=== PATIENT | female | born 1995 | race Caucasian/White ===

== ENCOUNTER 2016-06-02 16:19 | Outpatient (CLI) | payer OTHER ==
[~2016-06-02] VITALS: Ht 157.5 cm; Wt 99.1 kg
[~2016-06-02 16:19] MED LIST: ACET325T33 PO; CEPH-443 PO; PREN-39 PO; URSO300C21
[2016-06-02 16:58] VITALS: BP 105/61; PULSE 112; RESP 18; Ht 157.5 cm; Wt 99.1 kg
--- NOTE | 2016-06-02 17:24 | RADRPT ---
PROCEDURE: US OB biophysical profile. CLINICAL INDICATION: decreased movements, abdominal pain TECHNIQUE: Multiple sonographic images of the pelvis were obtained. The images were reviewed on a PACS workstation. COMPARISON: No prior studies are available for comparison. FINDINGS: There is a single viable intrauterine gestation. Cardiac activity is present with 153 beats per min [place]. There is a breech presentation. The placenta is anterior. There is no evidence of placental abruption. There is a normal amount of amniotic fluid with an GHAZALA = 16.6 cm. Biophysical profile: movement 2/2 tone 2/2. breathing 2/2 GHAZALA 2/2 Total 01/04 RPTAT: AA . IMPRESSION: Normal biophysical profile. . .Derek Deleon MD, Date Time Electronically viewed and signed by .Derek Deleon MD, MD on 06/02/2016 17:23 .S/
[2016-06-02 17:53] LABS: ALBUMIN 3.9 g/dl (3.3-4.9)
[2016-06-02 18:06] LABS: BILIRUBIN,INDIRECT 0.2 mg/dl (0-1.1); BILIRUBIN,TOTAL 0.2 mg/dl (0.2-1.3)
[2016-06-02 18:07] LABS: TOTAL PROTEIN 7.9 g/dl (6.1-8.1)
--- NOTE | 2016-06-02 19:20 | TRIAGE ---
OB Triage Datetime Report Generated by CPN: 06/02/2016 19:20 Datetime: 06/02/2016 19:00 Stage of : OB Triage Maternal Assessment Level of Consciousness: Fully Conscious Labor Evaluation Frequency: IRRITIBILITY NOTED Monitor Mode: External Quality: Mild Resting Tone [place]: Relaxed Heart Rate FHR Baseline Rate: 140 Monitor Mode: External US Variability: Moderate 6-25 bpm Accelerations: 15X15 Decelerations: None Pain Assessment Pain Scale: 0 Pain Presence: None/Denies Pain Type: N/A Pain Goal: 3 Vaginal Exam Membrane Status: Intact Vaginal Bleeding: None Datetime: 06/02/2016 18:00 Stage of : OB Triage Maternal Assessment Level of Consciousness: Fully Conscious Labor Evaluation Frequency: IRRITIBILITY NOTED Monitor Mode: External Quality: Mild Resting Tone [place]: Relaxed Heart Rate FHR Baseline Rate: 140 Monitor Mode: External US Variability: Moderate 6-25 bpm Accelerations: 15X15 Decelerations: None Pain Assessment Pain Scale: 0 Pain Presence: None/Denies Pain Type: N/A Pain Goal: 3 Vaginal Exam Membrane Status: Intact Vaginal Bleeding: None Datetime: 06/02/2016 17:30 Comments: PT BACK FROM U/S AND REPLACED ON EFM. Datetime: 06/02/2016 16:54 Assessment Type: Triage Maternal Assessment Level of Consciousness: Fully Conscious DTR's/Clonus: DTRs 2+; No Clonus Headache: Denies Blurred Vision: No Respiratory Effort: Unlabored; Regular Rhythm; Equal Expansion Breath Sounds, Left: Clear and Equal Breath Sounds, Right: Clear and Equal Nausea/Vomiting: Denies RUQ Epigastric Pain: Denies Lower Extremities Edema: None Degree: None Upper Extremities Edema: None Degree: None Facial Edema: None Fall Risk Assessment History of Falling: (0) No Secondary Diagnosis: (0) No Ambulatory Aid: (0) Bedrest/Nurse Assist IV Therapy: (0) No Gait: (0) Normal/Bedrest/Immobile Mental Status: (0) Oriented to Own Ability Fall Score: 0 Fall Risk Score Definition: No Risk: No action required Datetime: 06/02/2016 16:52 Time of Arrival: 06/02/2016 16:16 EGA: 34.0 Arrived By: Ambulatory Arrived From: Home Chief Complaint: PT HERE FOR NST/BPP FOR CHOLESTASIS Movement: Present Contractions: Denies/Absent Rupture of Membranes: Denies Vaginal Bleeding: None Vaginal Discharge: Denies Recent Sexual Intercouse: Denies Abdominal Trauma: Not Applicable Patient Complaints: None Time Provider Notified: 06/02/2016 16:16 Provider Notified: [email or web address] Initial Plan: BPP/NST/BILE ACIDS/LFT'S
[2016-06-07 13:15] LABS: CHENODEOXYCHOLIC ACID 2.6 umol/L (< OR = 3.1); CHOLIC ACID 1.7 umol/L (< OR = 1.8); DEOXYCHOLIC ACID 1.2 umol/L (< OR = 2.4); TOTAL BILE ACIDS 5.5 umol/L (< OR = 6.8)
== END 2016-06-02 19:27 | disposition home or self-care (01) ==
LOC: OBT 16:19 → L-D 16:20 → OBT 19:27
PROVIDERS: ATTEND Obstetrics & Gynecology
DX: O36.8130 Decreased fetal movements, third trimester, not applicable or unspecified (principal); O26.613 Liver and biliary tract disorders in pregnancy, third trimester; K83.1 Obstruction of bile duct; Z3A.34 34 weeks gestation of pregnancy
CPT/HCPCS: 76818; 80076; 83789; Z7500; G0463

== ENCOUNTER 2016-06-05 17:39 | Outpatient (CLI) | payer OTHER ==
--- NOTE | 2016-06-02 20:43 | QN ---
Documentation Comment 20 years old with IUP at 34 weeks with care with Dr. Louis, was sent from [facility] for NST/ BPP due to cholestasis of . Sheryl has been currently taking Ursodiol 300 mg PO TID that significantly improved her itching. Reports history of cholestasis in her prior as well. She denies any LOF or vaginal bleeding or contractions. Denies any decreased movement. GA: A&O, NAD Abdomen: Soft, non tender, Fundal height appropriate and consistent with GA Extremities: No calf tenderness, no click, no edema NST: Cat 1 BPP: 01/04 LFT normaL. LFT on 05/04/2016 prior to Ursodiol 116 and 180 and now normalized after started on Ursodiol Her prior Bile acids on 05/04/2016 . 5 ( nl). no fractionated bile acid done Bile acid at this encounter collected and sent. Results will be available after 5 days Assessment: IUP at 34 weeks Whole body itching without rash, concerning for possible cholestasis of . Symptoms completely resolved with Ursodiol NST/ BPP reassuring IN home Discussed with the patient about her condition. Strict PTL precaution and FKC discussed with the patient. Continue Biweekly NST/ BPP Continue Ursodiol 500 mg TID. SABINE POSADAS MD Jun 02, 2016 20:43
[~2016-06-05] VITALS: Ht 157.5 cm; Wt 101.0 kg
[~2016-06-05 17:39] MED LIST changes: -ACET325T33 PO; -CEPH-443 PO
[2016-06-05 17:51] VITALS: Ht 157.5 cm; Wt 101.0 kg
[2016-06-05 17:52] VITALS: BP 109/60; PULSE 103; RESP 20
--- NOTE | 2016-06-05 18:29 | RADRPT ---
PROCEDURE: OB ultrasound for biophysical profile CLINICAL INDICATION: Pain. Biophysical profile. . TECHNIQUE: Multiple sonographic images of the pelvis were obtained. Transabdominal view of the gr avid uterus are available for review. The images were reviewed on a PACS workstation. COMPARISON: 06/02/2016 FINDINGS: breathing movement = 2/2 tone = 2/2 motion = 2/2 GHAZALA = 2/2 GHAZALA = 13.0 cm Single intrauterine gestation is identified in cephalic position. heart rate is 152 bpm. Plac enta is anterior without evidence for abruption or previa. IMPRESSION: 1. Single live intrauterine gestation. 2. Biophysical profile = 8/8. 3. GHAZALA = 13.0 cm. RPTAT: HDWR .Nader Herbert MD, Date Time Electronically viewed and signed by .Nader Herbert MD, on 06/05/2016 18:29 .R/
--- NOTE | 2016-06-05 21:24 | HP ---
Date/Time of Note Date/Time of Note DATE: 06/05/16 TIME: 21:18 OB - History Hx of Present Free Text/Dictation OB Triage Pt is a 20yo at 34+3 presenting for NST/GHAZALA in the setting of presumed cholestasis. Pt is taking Ursodiol 300mg TID with good effect. She reports a little itching on the hands this morning, but none further- sxs have improved quite a bit since starting meds. Pt reports normal FM, denies LOF, VB or UCs. PROCEDURE: OB ultrasound for biophysical profile CLINICAL INDICATION: Pain. Biophysical profile. . TECHNIQUE: Multiple sonographic images of the pelvis were obtained. Transabdominal view of the gravid uterus are available for review. The images were reviewed on a PACS workstation. COMPARISON: 06/02/2016 FINDINGS: breathing movement = 2/2 tone = 2/2 motion = 2/2 GHAZALA = 2/2 GHAZALA = 13.0 cm Single intrauterine gestation is identified in cephalic position. heart rate is 152 bpm. Placenta is anterior without evidence for abruption or previa. IMPRESSION: 1. Single live intrauterine gestation. 2. Biophysical profile = 8/8. 3. GHAZALA = 13.0 cm. Past Family/Social History * Past Medical, Surgical, Family and Obstetric Histories reviewed from chart. OB Admission Exam Vital Signs Vital Signs Vital Signs Date Time Temp Pulse Resp B/P Pulse Ox O2 Delivery O2 Flow Rate FiO2 06/05/16 17:52 97.9 103 20 109/60 96 Room Air Physical Exam Heart Rate: 130's Accelerations: Accelerations Present Decelerations: No Decelerations Varibility: Moderate Contractions on Admission: None OB Assessment/Plan Other Assessment: Presumed Cholestasis, awaiting Total Bile Acids Other plan: Reassuring FWB with reactive NST and normal BPP Continue Ursodiol as prescribed Pt appropriate for d/c home Scheduled for return biweekly NST, next 06/07/15 Strict FKC precautions, PTL and PPROM precautions reviewed Questions answered to patient's satisfaction RUDDY GRUBBS MD Jun 05, 2016 21:24
== END 2016-06-05 19:11 | disposition home or self-care (01) ==
LOC: OBT 17:39 → L-D 17:39 → OBT 19:11
PROVIDERS: ATTEND Obstetrics & Gynecology
DX: O26.613 Liver and biliary tract disorders in pregnancy, third trimester (principal); K83.1 Obstruction of bile duct; Z3A.34 34 weeks gestation of pregnancy
CPT/HCPCS: 76818; Z7500; G0463

== ENCOUNTER 2016-06-07 18:13 | Outpatient (CLI) | payer OTHER ==
[~2016-06-07] VITALS: Ht 157.5 cm; Wt 101.2 kg
[2016-06-07 18:32] VITALS: Ht 157.5 cm; Wt 101.2 kg
--- NOTE | 2016-06-07 19:36 | RADRPT ---
PROCEDURE: OB ultrasound for biophysical profile CLINICAL INDICATION: Biophysical profile. . TECHNIQUE: Multiple sonographic images of the pelvis were obtained. Transabdominal view of the gr avid uterus are available for review. The images were reviewed on a PACS workstation. COMPARISON: OB ultrasound 06/05/2016 FINDINGS: Single intrauterine gestation. Presentation: cephalic. Placenta: anterior breathing movement = 2/2 tone = 2/2 motion = 2/2 GHAZALA = 2/2 GHAZALA = 13.2 cm heart rate: 148 beats per minute IMPRESSION: Single intrauterine gestation. Biophysical profile 01/04 RPTAT: AADD .Bharat Diamond MD, MD Date Time Electronically viewed and signed by .Bharat Diamond MD, on 06/07/2016 19:36 .B/
== END 2016-06-07 20:32 | disposition home or self-care (01) ==
LOC: OBT 18:13 → L-D 18:13 → OBT 20:32
PROVIDERS: ATTEND Obstetrics & Gynecology
DX: O26.619 Liver and biliary tract disorders in pregnancy, unspecified trimester (principal); K83.1 Obstruction of bile duct; Z3A.00 Weeks of gestation of pregnancy not specified
CPT/HCPCS: 76818; Z7500; G0463

== ENCOUNTER 2016-06-10 08:17 | Outpatient (CLI) | payer OTHER ==
--- NOTE | 2016-06-08 04:23 | HP ---
Date/Time of Note Date/Time of Note DATE: 06/08/16 TIME: 04:15 OB - History Hx of Present Free Text/Dictation 20Year-old with SIUP at 34 5/7 presents with a chief complaint of ucs. She has been receiving her care with Dr. Garrett. She states good movement. She denies nausea, vomiting, shortness of breath, chest pain, and abdominal pain between contractions, headache, visual changes, vaginal bleeding or LOF. Past Family/Social History * Past Medical, Surgical, Family and Obstetric Histories reviewed from chart. OB Admission Exam Physical Exam HEENT: WNL Heart: Rhythm Normal Lungs: Clear Abdomen: WNL Extremities: Normal Reflexes: Normal Cervical Dilatation: 1cm Effacement: 75% Station: -3 Membranes: Intact Heart Rate: 140's Accelerations: Accelerations Present Decelerations: No Decelerations Varibility: Moderate Contractions on Admission: 6-10 Minutes Apart Intensity: Mild OB Assessment/Plan Other plan: Physical Exam: 20Year-old with SIUP at 34 5/7 with cholestasis and ucs. She received IVF and one dose terbutaline (per Dr. Garrett orders). Currently has no further ucs. - FHR: No sign of metabolic acidosis- Category I - Contractions: None. - Contractions: Occasional - Reactive NST - BPP: 10/10 - Symptoms and sign of labor, preeclampsia, kick count discussed with patient, she voiced understanding. All of her questions answered. - Patient was discharged home in stable condition with the appropriate discharge instructions provided. I would like patient to have close follow-up with her primary OB physician or outpatient clinic in 1-2 days or return to the ER for worsening symptoms or any other urgent concerns. Copies To: CC: FLOR GARRETT MD, SEDI Jun 08, 2016 04:23
[~2016-06-10] VITALS: Ht 157.5 cm; Wt 100.6 kg
[2016-06-10 08:30] VITALS: Ht 157.5 cm; Wt 100.6 kg
[2016-06-10 08:31] VITALS: BP 116/59; PULSE 106; RESP 18
--- NOTE | 2016-06-10 09:12 | RADRPT ---
PROCEDURE: OB ultrasound for biophysical profile CLINICAL INDICATION: Cholestasis TECHNIQUE: Multiple sonographic images of the pelvis were obtained. Transabdominal view of the gr avid uterus are available for review. The images were reviewed on a PACS workstation. COMPARISON: None FINDINGS: breathing movement = 2/2 tone = 2/2 motion = 2/2 GHAZALA = 2/2 GHAZALA = 10.8 cm Single live intrauterine with cardiac activity. heart rate equals 150 beats p er minute. Presentation is breech. The placenta is anterior. IMPRESSION: 1. Single viable intrauterine gestation. 2. Biophysical profile = 8/8. 3. GHAZALA = 10.8 cm. RPTAT: KK .Bharathi Mcgregor MD, Date Time Electronically viewed and signed by .Bharathi Mcgregor MD, MD on 06/10/2016 09:12 .B/
--- NOTE | 2016-06-10 12:16 | CONS ---
DATE OF ADMISSION: 06/10/2016 DATE OF CONSULTATION: CONSULTATION HISTORY OF PRESENT ILLNESS: This patient is a 21-year-old 3, para 2, , about 35 weeks and 1 day. Her due date is 07/14/2016, and she developed cholestasis of during this . Is here for further evaluation. PAST MEDICAL HISTORY: In reviewing her past medical history during her 2 past deliveries, she developed this condition of cholestasis and one delivery at 36 weeks, the other one at 37 weeks. Her complaints are mostly the intense itching which is improving with Actigall, which she is taking 300 mg t.i.d. No other complaint other complaints. No nausea, no vomiting. No pain, no contractions, no bleeding. PHYSICAL EXAMINATION: GENERAL: She is a well-developed, well-nourished lady, , near term. EARS, NOSE, AND THROAT: Appear to be normal. NECK: Normal. No neck vein distention, no thyromegaly. LYMPHATIC: no lymph nodes anywhere in the body. CHEST: Clear to auscultation and percussion. HEART: Normal sinus rhythm, no murmur. ABDOMEN: It measures about 34 cm. Baby appears to be in vertex presentation and we do not have many contractions, and heart rate variability is good. EXTREMITIES: Normal. On both of her hands, she does have erythema and evidence of cholestasis of to some degree on the palm and on the soles of her feet. No organomegaly anywhere in the body. PELVIC: Exam was not done; however, the biophysical profile was performed, and her score is 8/8. The baby was in breech presentation and vertex. Her amniotic fluid index is 10.8 cm. With these findings, the patient is advised to go home and return in 4 days for further monitoring. She is told to continue taking her Actigall 300 mg t.i.d. If any low movement, any sign of labor, vaginal bleeding or any other problems, she can immediately come back to the hospital. Dictated By: JENS POWERS/JAY Conf#: [id number] DID#: [id number] MTDAlva
== END 2016-06-10 10:31 | disposition home or self-care (01) ==
LOC: OBT 08:17 → L-D 08:18 → OBT 10:31
PROVIDERS: ATTEND Obstetrics & Gynecology
DX: O26.613 Liver and biliary tract disorders in pregnancy, third trimester (principal); K83.1 Obstruction of bile duct; Z3A.35 35 weeks gestation of pregnancy
CPT/HCPCS: 76818; Z7500; G0463

== ENCOUNTER 2016-06-14 14:22 | Outpatient (CLI) | payer OTHER ==
[~2016-06-14] VITALS: Ht 157.5 cm; Wt 100.5 kg
[2016-06-14 14:34] VITALS: Ht 157.5 cm; Wt 100.5 kg
[2016-06-14 14:35] VITALS: BP 110/70; PULSE 94; RESP 18
--- NOTE | 2016-06-14 14:57 | RADRPT ---
PROCEDURE: US OB biophysical profile. CLINICAL INDICATION: decreased movements, cholestasis TECHNIQUE: Multiple sonographic images of the pelvis were obtained. The images were reviewed on a PACS workstation. COMPARISON: 06/10 FINDINGS: There is a single viable intrauterine gestation. Cardiac activity is present with 140 beats per min jena. There is a vertex presentation. The placenta is anterior. There is no evidence of placental abruption. There is a normal amount of amniotic fluid with an GHAZALA = 13.8 cm. Biophysical profile: movement 2/2 tone 2/2. breathing 2/2 GHAZALA 2/2 Total 01/04 RPTAT: AA . IMPRESSION: Normal biophysical profile. . .Derek Deleon MD, MD Date Time Electronically viewed and signed by .Derek Deleon MD, MD on 06/14/2016 14:57 .S/
--- NOTE | 2016-06-16 11:06 | PN ---
DATE: The patient is a 21-year-old at 35 weeks. Patient here for no complaints but ____ _ ___ reactive. The patient will be discharged home. Follow up in ____ clinic . All precaut ions given. The patient is stable upon discharge. Dictated By: PHILLIP LEDBETTER MD /NTS Conf#: [id number] DID#: [id number]
== END 2016-06-14 15:40 | disposition home or self-care (01) ==
LOC: OBT 14:22 → L-D 14:23 → OBT 15:40
PROVIDERS: ATTEND Obstetrics & Gynecology
DX: O26.613 Liver and biliary tract disorders in pregnancy, third trimester (principal); K83.1 Obstruction of bile duct; O36.8130 Decreased fetal movements, third trimester, not applicable or unspecified; Z3A.35 35 weeks gestation of pregnancy
CPT/HCPCS: 76818; Z7500; G0463

== ENCOUNTER 2016-06-15 15:46 | Inpatient (IN) | payer OTHER ==
[~2016-06-15] VITALS: Ht 157.5 cm; Wt 101.0 kg
[2016-06-15 15:55] VITALS: Ht 157.5 cm; Wt 101.0 kg
[2016-06-15 15:56] VITALS: BP 118/72; PULSE 93
--- NOTE | 2016-06-15 17:28 | QN ---
Documentation Comment OB triage: 35+wks GA With cholestasis of and CTXs No VB +FM No lof Occasion CTX CX 1 cm/l /p NST reassuring --->BPP and PIH panel to be done if 01/04 she can be discharge with precautions --->RT Hospital in 2 days for another NST BPSTEPHEN JONES M.D. Jun 15, 2016 17:28
--- NOTE | 2016-06-15 17:46 | RADRPT ---
PROCEDURE: US biophysical profile. CLINICAL INDICATION: Decreased motion. Incompetent cervix. TECHNIQUE: Multiple sonographic images of the uterus were obtained. Transvaginal sonograp hy of the cervix was also performed. The images were reviewed on a PACS workstation. COMPARISON: 06/14/2016. FINDINGS: There is a single live intrauterine gestation. heart rate is 148 beats per minute. The position is cephalic. The placenta is anterior grade II with no abruption or previa. The GHAZALA is 15.4 cm. (Normal = 5-20 cm.) Transvaginal cervical length is 1.7 cm. Breathing Movement: 2 Gross Body Movement: 2 Tone: 2 Qualitative Amniotic Fluid Volume: 2 TOTAL: 8 IMPRESSION: 1. The biophysical score is 8/8. 2. Cervical length is 1.7 cm. RPTAT: QQ .Ramón Young MD, Date Time Electronically viewed and signed by .Ramón Young MD, on 06/15/2016 17:46 .R/
[2016-06-15 18:03] LABS: BASOPHILS % 0.3 % (0.0-2.0); EOSINOPHILS % 0.2 % (0.0-7.0); HEMOGLOBIN 12.1 g/dl (12.0-16.0); LYMPHOCYTES # 1.4 10^3/ul (0.8-2.9); LYMPHOCYTES % 18.9 % (15.0-51.0); MEAN CORPUSCULAR HEMOGLOBIN 29.4 pg (29.0-33.0); MEAN CORPUSCULAR HGB CONC 33.7 g/dl (32.0-37.0); MEAN CORPUSCULAR VOLUME 87.2 fl (82.0-101.0); MEAN PLATELET VOLUME 9.3 fl (7.4-10.4); MONOCYTE # 0.3 10^3/ul (0.3-0.9); MONOCYTES % 4.6 % (0.0-11.0); NEUTROPHIL # 5.4 10^3/ul (1.6-7.5); PLATELET COUNT 249 10^3/UL (140-440); RED BLOOD COUNT 4.13 10^6/ul (4.20-5.40); RED CELL DISTRIBUTION WIDTH 13.7 % (11.5-14.5); UNCORRECTED WBC 7.2 10^3/ul (4.8-10.8); WHITE BLOOD COUNT 7.2 10^3/ul (4.8-10.8)
[2016-06-15 18:05] LABS: CONDITION 1
[2016-06-15 18:11] LABS: ADD UMIC YES; URINE BILIRUBIN (Dip) 1+ (NEGATIVE); URINE BLOOD (Dip) NEGATIVE (NEGATIVE); URINE COLOR YELLOW (YELLOW); URINE GLUCOSE (Dip) NEGATIVE (NEGATIVE); URINE KETONES (Dip) NEGATIVE (NEGATIVE); URINE LEUKOCYTE ESTERASE (Dip) 1+ (NEGATIVE); URINE NITRITE (Dip) NEGATIVE (NEGATIVE); URINE TOTAL PROTEIN (Dip) NEGATIVE (NEGATIVE); URINE UROBILINOGEN (Dip) 1.0 E.U./dL (0.1-1.0)
[2016-06-15 18:12] LABS: ALBUMIN 3.6 g/dl (3.3-4.9)
[2016-06-15 18:13] LABS: POTASSIUM 4.2 mmol/L (3.5-5.1)
[2016-06-15 18:14] LABS: PARTIAL THROMBOPLASTIN TIME 26.6 Sec (25.0-35.0); PROTIME 12.1 Sec (12.2-14.2); PT RATIO 0.9
[2016-06-15 18:15] LABS: ALBUMIN/GLOBULIN RATIO 0.97; BILIRUBIN,INDIRECT 0.2 mg/dl (0-1.1); BILIRUBIN,TOTAL 0.2 mg/dl (0.2-1.3); CREATININE 0.6 mg/dl (0.44-1.00); TOTAL PROTEIN 7.3 g/dl (6.1-8.1); URIC ACID 5.4 mg/dl (3.1-7.9)
[2016-06-15 18:16] LABS: CALCIUM 10.7 mg/dl (8.4-10.2)
[2016-06-15 18:17] LABS: ICTOTEST NEGATIVE (NEGATIVE)
[2016-06-15 18:19] LABS: BACTERIA,URINE FEW; SQUAMOUS EPITHELIAL CELL,UR MODERATE; URINE RBCS 0-2 /HPF (0)
[2016-06-15 19:27] LABS: FIBRIN SPLIT PRODUCT <10 ug/ml (<10)
[2016-06-15] MEDS: URSODIOL 300 MG CAP PO SCH (21:55)
[2016-06-16 06:36] LABS: BASOPHILS % 0.6 % (0.0-2.0); EOSINOPHILS % 0.7 % (0.0-7.0); HEMATOCRIT 32.2 % (37.0-47.0); HEMOGLOBIN 11.3 g/dl (12.0-16.0); LYMPHOCYTES # 1.7 10^3/ul (0.8-2.9); LYMPHOCYTES % 30.5 % (15.0-51.0); MEAN CORPUSCULAR HEMOGLOBIN 30.3 pg (29.0-33.0); MEAN CORPUSCULAR VOLUME 86.5 fl (82.0-101.0); MEAN PLATELET VOLUME 9.8 fl (7.4-10.4); MONOCYTE # 0.4 10^3/ul (0.3-0.9); MONOCYTES % 7.4 % (0.0-11.0); NEUTROPHIL # 3.5 10^3/ul (1.6-7.5); NEUTROPHILS % 60.8 % (39.0-77.0); PLATELET COUNT 241 10^3/UL (140-440); RED BLOOD COUNT 3.72 10^6/ul (4.20-5.40); RED CELL DISTRIBUTION WIDTH 13.9 % (11.5-14.5); UNCORRECTED WBC 5.7 10^3/ul (4.8-10.8); WHITE BLOOD COUNT 5.7 10^3/ul (4.8-10.8)
[2016-06-16 06:45] LABS: CONDITION 1
[2016-06-16 08:16] LABS: ALBUMIN 3.2 g/dl (3.3-4.9); POTASSIUM 4.1 mmol/L (3.5-5.1)
[2016-06-16 08:18] LABS: CREATININE 0.57 mg/dl (0.44-1.00)
[2016-06-16 08:19] LABS: ALBUMIN/GLOBULIN RATIO 0.91; BILIRUBIN,INDIRECT 0.1 mg/dl (0-1.1); BILIRUBIN,TOTAL 0.1 mg/dl (0.2-1.3); TOTAL PROTEIN 6.7 g/dl (6.1-8.1); URIC ACID 5.3 mg/dl (3.1-7.9)
[2016-06-16 08:20] LABS: CALCIUM 10.4 mg/dl (8.4-10.2)
[2016-06-16 08:25] LABS: INR 0.86; PROTIME 11.7 Sec (12.2-14.2); PT RATIO 0.9
[2016-06-16 08:26] LABS: PARTIAL THROMBOPLASTIN TIME 27.2 Sec (25.0-35.0)
[2016-06-16] MEDS ORDERED: MULTIVIT/MIN/FOLATE/IRON/PREN TAB PO SCH (09:00)
[2016-06-16] MEDS: URSODIOL 300 MG CAP PO SCH ×2 (09:05→12:55)
[2016-06-16 09:53] LABS: ADD UMIC YES; URINE BILIRUBIN (Dip) 1+ (NEGATIVE); URINE BLOOD (Dip) NEGATIVE (NEGATIVE); URINE COLOR YELLOW (YELLOW); URINE GLUCOSE (Dip) NEGATIVE (NEGATIVE); URINE KETONES (Dip) NEGATIVE (NEGATIVE); URINE LEUKOCYTE ESTERASE (Dip) TRACE (NEGATIVE); URINE NITRITE (Dip) NEGATIVE (NEGATIVE); URINE TOTAL PROTEIN (Dip) NEGATIVE (NEGATIVE); URINE UROBILINOGEN (Dip) 2.0 E.U./dL (0.1-1.0)
[2016-06-16 11:03] LABS: ICTOTEST POSITIVE (NEGATIVE)
[2016-06-16 11:05] LABS: SQUAMOUS EPITHELIAL CELL,UR FEW; URINE RBCS NONE SEEN /HPF (0)
[2016-06-16] MEDS ORDERED: CEPHALEXIN 500 MG CAP PO SCH (12:00)
[2016-06-16 13:50] LABS: FIBRIN SPLIT PRODUCT <10 ug/ml (<10)
--- NOTE | 2016-06-16 17:37 | HP ---
Date/Time of Note Date/Time of Note DATE: 06/16/16 TIME: 17:31 OB - History Hx of Present Free Text/Dictation 21 years old female with IUP at 36 weeks with care with Dr. Louis, presented to labor and delivery with complaint of contractions. Her OB history significant for itching of the pounds and soles concerning for cholestasis of . She had a history of glasses of prior as well. She had normal LFTs on February 2016 however her LFTs increased 200s as of April 2016. She was a started on ursodiol 100 mg 3 times daily. Per patient does not seem to help with her itching of pounds and soles. Her most recent LFTs shows that he has been currently stable. She had an normal bile acids in February 2016. Recent bile acid drawn yesterday and the results are not available. Patient denies any leakage of fluid or vaginal bleeding. She was noted to be 1 and half centimeter dilated. She had some contractions that subsided. Estimated Due Date: Jul 14, 2016 : 3 Para: 2 Spontaneous : 0 Care: Good Care Past Family/Social History * Past Medical, Surgical, Family and Obstetric Histories reviewed from chart. OB Admission Exam Vital Signs Vital Signs Vital Signs Date Time Temp Pulse Resp B/P Pulse Ox O2 Delivery O2 Flow Rate FiO2 06/15/16 15:56 97.8 93 118/72 Room Air Physical Exam HEENT: WNL Heart: Rhythm Normal Lungs: Clear Abdomen: WNL Cervical Dilatation: 1cm Effacement: 25% Station: -3 Membranes: Intact Heart Rate: 120's Accelerations: Accelerations Present Decelerations: No Decelerations Varibility: Moderate Contractions on Admission: < 5 Minutes Apart Intensity: Moderate Last 72 hourBlood Glucose Hematology - 72 Hrs Test 06/15/16 17:50 06/16/16 06:00 Basophils # 0.010^3/ul (0.0-0.1) 0.010^3/ul (0.0-0.1) Basophils % 0.3% (0.0-2.0) 0.6% (0.0-2.0) Eosinophils # 0.010^3/ul (0.0-0.5) 0.010^3/ul (0.0-0.5) Eosinophils % 0.2% (0.0-7.0) 0.7% (0.0-7.0) Hematocrit 36.0% (37.0-47.0) L 32.2% (37.0-47.0) L Hemoglobin 12.1g/dl (12.0-16.0) 11.3g/dl (12.0-16.0) L Lymphocytes # 1.410^3/ul (0.8-2.9) 1.710^3/ul (0.8-2.9) Lymphocytes % 18.9% (15.0-51.0) 30.5% (15.0-51.0) Mean Corpuscular Hemoglobin 29.4pg (29.0-33.0) 30.3pg (29.0-33.0) Mean Corpuscular Hemoglobin Concent 33.7g/dl (32.0-37.0) 35.0g/dl (32.0-37.0) Mean Corpuscular Volume 87.2fl (82.0-101.0) 86.5fl (82.0-101.0) Mean Platelet Volume 9.3fl (7.4-10.4) 9.8fl (7.4-10.4) Monocytes # 0.310^3/ul (0.3-0.9) 0.410^3/ul (0.3-0.9) Monocytes % 4.6% (0.0-11.0) 7.4% (0.0-11.0) Neutrophils # 5.410^3/ul (1.6-7.5) 3.510^3/ul (1.6-7.5) Neutrophils % 76.0% (39.0-77.0) 60.8% (39.0-77.0) Nucleated Red Blood Cells # 0.010^3/ul (0.0-0.0) 0.010^3/ul (0.0-0.0) Nucleated Red Blood Cells % 0.0/100WBC (0.0-0.0) 0.0/100WBC (0.0-0.0) Platelet Count 52369^3/UL (140-440) # 09015^3/UL (140-440) Red Blood Count 4.1310^6/ul (4.20-5.40) L 3.7210^6/ul (4.20-5.40) L Red Cell Distribution Width 13.7% (11.5-14.5) 13.9% (11.5-14.5) White Blood Count 7.210^3/ul (4.8-10.8) # 5.710^3/ul (4.8-10.8) # Chemistry Test 06/15/16 17:50 06/16/16 06:00 Alanine Aminotransferase (ALT/SGPT) 152IU/L (13-69) H 149IU/L (13-69) H Albumin 3.6g/dl (3.3-4.9) 3.2g/dl (3.3-4.9) L Albumin/Globulin Ratio 0.97 0.91 Alkaline Phosphatase 250IU/L (42-121) H 239IU/L (42-121) H Anion Gap 16 (8-16) 15 (8-16) Aspartate Amino Transf (AST/SGOT) 101IU/L (15-46) H 104IU/L (15-46) H Blood Urea Nitrogen 13mg/dl (7-20) 13mg/dl (7-20) Calcium Level 10.7mg/dl (8.4-10.2) H 10.4mg/dl (8.4-10.2) H Carbon Dioxide Level 23mmol/L (21-31) 23mmol/L (21-31) Chloride Level 105mmol/L (97-110) 106mmol/L (97-110) Creatinine 0.60mg/dl (0.44-1.00) 0.57mg/dl (0.44-1.00) Direct Bilirubin 0.00mg/dl (0.00-0.20) 0.00mg/dl (0.00-0.20) Globulin 3.70g/dl (1.3-3.2) H 3.50g/dl (1.3-3.2) H Glucose Level 72mg/dl (70-220) 101mg/dl (70-220) Indirect Bilirubin 0.2mg/dl (0-1.1) 0.1mg/dl (0-1.1) Potassium Level 4.2mmol/L (3.5-5.1) 4.1mmol/L (3.5-5.1) Sodium Level 140mmol/L (135-144) 140mmol/L (135-144) Total Bilirubin 0.2mg/dl (0.2-1.3) 0.1mg/dl (0.2-1.3) L Total Protein 7.3g/dl (6.1-8.1) 6.7g/dl (6.1-8.1) Uric Acid 5.4mg/dl (3.1-7.9) 5.3mg/dl (3.1-7.9) Last 72 hours Lab Results CBC & BMP 06/15/16 17:50 06/16/16 06:00 Liver Function Test 06/15/16 17:50 06/16/16 06:00 Alanine Aminotransferase (ALT/SGPT) 152 H 149 H Albumin 3.6 3.2 L Alkaline Phosphatase 250 H 239 H Aspartate Amino Transf (AST/SGOT) 101 H 104 H Direct Bilirubin 0.00 0.00 Total Protein 7.3 6.7 OB Assessment/Plan Other Assessment: IUP at 36 weeks History of cholecystaais of Itching of the soles and palms concerning for cholestasis of in current, gestation She had elevated LFTs, bile acids pending Currently on ursodiol 100 mg p.o. 3 times daily. Symptoms worsened for the last week and does not respond to ursodiol. possible early labor vs False labor I have discussed this case and consulted with Dr. Hebert the perinatologist on- call. Productive cough this recommendation patient to continue to be expected management with repeating her LFTs tomorrow. She will evaluate the patient tomorrow. Recommended to continue ursodiol p.o. 3 times daily at this time We will continue expectant management GBS culture obtained Continue IV hydration Patient will be examined if she is feeling contraction to rule out labor Consider GBS prophylaxis if we note any cervical change Continuous monitoring Atarax 10 mg p.o. 3 times daily as needed itching SABINE POSADAS MD Jun 16, 2016 17:37
[2016-06-16] MEDS ORDERED: MISOPROSTOL 200 MCG TAB PR PRN (20:00)
[2016-06-16] MEDS ORDERED: LIDOCAINE 1% (MPF) 30 ML INJ INJ PRN (20:00)
[2016-06-16] MEDS ORDERED: OXYTOCIN 30 UNITS/LR 500 ML IV PRN (20:00)
[2016-06-16] MEDS ORDERED: CARBOPROST 250 MCG INJ IM PRN (20:00)
[2016-06-16] MEDS ORDERED: METHYLERGONOVINE 0.2 MG INJ IM PRN (20:00)
[2016-06-16 20:06] LABS: BASOPHILS % 0.6 % (0.0-2.0); EOSINOPHILS % 0.1 % (0.0-7.0); HEMATOCRIT 34.5 % (37.0-47.0); HEMOGLOBIN 11.7 g/dl (12.0-16.0); LYMPHOCYTES # 1.6 10^3/ul (0.8-2.9); LYMPHOCYTES % 26.8 % (15.0-51.0); MEAN CORPUSCULAR HEMOGLOBIN 29.7 pg (29.0-33.0); MEAN CORPUSCULAR HGB CONC 33.9 g/dl (32.0-37.0); MEAN CORPUSCULAR VOLUME 87.6 fl (82.0-101.0); MEAN PLATELET VOLUME 9.5 fl (7.4-10.4); MONOCYTE # 0.4 10^3/ul (0.3-0.9); MONOCYTES % 6.4 % (0.0-11.0); NEUTROPHILS % 66.1 % (39.0-77.0); PLATELET COUNT 266 10^3/UL (140-440); RED BLOOD COUNT 3.94 10^6/ul (4.20-5.40); RED CELL DISTRIBUTION WIDTH 13.6 % (11.5-14.5)
[2016-06-16 20:09] LABS: CONDITION 1
[2016-06-16 20:14] LABS: INR 0.84; PARTIAL THROMBOPLASTIN TIME 26.7 Sec (25.0-35.0); PROTIME 11.5 Sec (12.2-14.2); PT RATIO 0.9
[2016-06-16] MEDS: hydrOXYzine HCL 10 MG TAB PO SCH (22:48)
[2016-06-16] MEDS ORDERED: LACTATED RINGER'S 1,000 ML IV PRN (23:00)
[2016-06-17] MEDS: LACTATED RINGER'S 1,000 ML IV SCH ×2 (03:21→09:26)
[2016-06-17] MEDS: CEPHALEXIN 500 MG CAP PO SCH ×2 (07:41→11:54)
[2016-06-17 07:50] LABS: ALBUMIN 3.2 g/dl (3.3-4.9)
[2016-06-17 07:51] LABS: POTASSIUM 4.4 mmol/L (3.5-5.1)
[2016-06-17 07:53] LABS: ALBUMIN/GLOBULIN RATIO 0.86; BILIRUBIN,INDIRECT 0.2 mg/dl (0-1.1); BILIRUBIN,TOTAL 0.2 mg/dl (0.2-1.3); CALCIUM 10.6 mg/dl (8.4-10.2); CREATININE 0.56 mg/dl (0.44-1.00); TOTAL PROTEIN 6.9 g/dl (6.1-8.1)
[2016-06-17] MEDS ORDERED: MULTIVIT/MIN/FOLATE/IRON/PREN TAB PO SCH (09:00)
[2016-06-17] MEDS ORDERED: hydrOXYzine HCL 10 MG TAB PO SCH (09:00)
[2016-06-17] MEDS: URSODIOL 300 MG CAP PO SCH ×2 (09:25→12:58)
[2016-06-17] MEDS: hydrOXYzine HCL 10 MG TAB PO SCH ×2 (09:26→12:58)
--- NOTE | 2016-06-17 16:34 | DS ---
Date/Time of Note Date/Time of Note DATE: 06/17/16 TIME: 16:34 Discharge Summary Admission/Discharge Info Admit Date/Time Jun 15, 2016 at 19:13 Discharge Date/Time Final Diagnosis LABOR Hospital Course UNREMARKABLE Home Meds Reported Medications Ursodiol* (Actigall*) 300 Mg Cap, 300 MG .ROUTE, CAP 12/27/14 Vits W-Ca,Fe,Fa(<1MG) ( Vitamins) 1 Tab Tablet, 1 TAB PO DAILY for 7 Days 11/29/14 Pending Labs Laboratory Tests Test 06/16/16 19:50 06/17/16 05:28 Activated Partial Thromboplast Time 26.7Sec (25.0-35.0) Basophils # 0.010^3/ul (0.0-0.1) Basophils % 0.6% (0.0-2.0) Eosinophils # 0.010^3/ul (0.0-0.5) Eosinophils % 0.1% (0.0-7.0) Hematocrit 34.5% (37.0-47.0) Hemoglobin 11.7g/dl (12.0-16.0) INR International Normalized Ratio 0.84 Lymphocytes # 1.610^3/ul (0.8-2.9) Lymphocytes % 26.8% (15.0-51.0) Mean Corpuscular Hemoglobin 29.7pg (29.0-33.0) Mean Corpuscular Hemoglobin Concent 33.9g/dl (32.0-37.0) Mean Corpuscular Volume 87.6fl (82.0-101.0) Mean Platelet Volume 9.5fl (7.4-10.4) Monocytes # 0.410^3/ul (0.3-0.9) Monocytes % 6.4% (0.0-11.0) Neutrophils # 4.010^3/ul (1.6-7.5) Neutrophils % 66.1% (39.0-77.0) Nucleated Red Blood Cells # 0.010^3/ul (0.0-0.0) Nucleated Red Blood Cells % 0.0/100WBC (0.0-0.0) Platelet Count 73866^3/UL (140-440) Prothrombin Time 11.5Sec (12.2-14.2) Prothrombin Time Ratio 0.9 Red Blood Count 3.9410^6/ul (4.20-5.40) Red Cell Distribution Width 13.6% (11.5-14.5) White Blood Count 6.010^3/ul (4.8-10.8) Alanine Aminotransferase (ALT/SGPT) 136IU/L (13-69) Albumin 3.2g/dl (3.3-4.9) Albumin/Globulin Ratio 0.86 Alkaline Phosphatase 229IU/L (42-121) Anion Gap 15 (8-16) Aspartate Amino Transf (AST/SGOT) 89IU/L (15-46) Blood Urea Nitrogen 10mg/dl (7-20) Calcium Level 10.6mg/dl (8.4-10.2) Carbon Dioxide Level 24mmol/L (21-31) Chloride Level 106mmol/L (97-110) Creatinine 0.56mg/dl (0.44-1.00) Direct Bilirubin 0.00mg/dl (0.00-0.20) Globulin 3.70g/dl (1.3-3.2) Glucose Level 80mg/dl (70-220) Indirect Bilirubin 0.2mg/dl (0-1.1) Potassium Level 4.4mmol/L (3.5-5.1) Sodium Level 141mmol/L (135-144) Total Bilirubin 0.2mg/dl (0.2-1.3) Total Protein 6.9g/dl (6.1-8.1) VINITA YANES MD Jun 17, 2016 16:34
== END 2016-06-17 17:00 | disposition home or self-care (01) | DRG 778 ==
LOC: OBT 15:46 → L-D 15:47 → OBT 19:13 → OBG 19:13 → L-D 06-16 18:30
PROVIDERS: ADMIT Obstetrics & Gynecology; ATTEND Obstetrics & Gynecology
DX: O60.03 Preterm labor without delivery, third trimester (principal); O26.613 Liver and biliary tract disorders in pregnancy, third trimester; Z3A.36 36 weeks gestation of pregnancy
CPT/HCPCS: 76817; 76818; 80053; 81001; 81003; 84560; 85025; 85362; 85384; 85610; 85730; 86592; 86900; 86901; 87081; 87086; G0463; J7120

== ENCOUNTER 2016-06-24 06:00 | Inpatient (IN) | payer OTHER ==
[~2016-06-24] VITALS: Ht 157.5 cm; Wt 100.9 kg
[2016-06-24] MEDS ORDERED: OXYTOCIN 30 UNITS/LR 500 ML IV SCH ×4 (06:30→20:21)
[2016-06-24] MEDS ORDERED: OXYTOCIN 30 UNITS/LR 500 ML IV PRN ×2 (06:30→20:30)
[2016-06-24] MEDS ORDERED: CARBOPROST 250 MCG INJ IM PRN ×2 (06:30→20:30)
[2016-06-24] MEDS ORDERED: MISOPROSTOL 200 MCG TAB PR PRN ×2 (06:30→20:30)
[2016-06-24] MEDS ORDERED: LIDOCAINE 1% (MPF) 30 ML INJ INJ PRN (06:30)
[2016-06-24] MEDS ORDERED: BUTORPHANOL 2 MG INJ IV PRN ×2 (06:30)
[2016-06-24] MEDS ORDERED: IBUPROFEN 600 MG TAB PO PRN (06:30)
[2016-06-24] MEDS ORDERED: METHYLERGONOVINE 0.2 MG INJ IM PRN ×2 (06:30→20:30)
[2016-06-24 06:48] VITALS: Ht 157.5 cm; Wt 100.9 kg
[2016-06-24 06:49] VITALS: BP 107/67; PULSE 84; RESP 18
[2016-06-24] MEDS: LACTATED RINGER'S 1,000 ML IV SCH ×2 (06:52→15:53)
[2016-06-24 07:42] LABS: INR 0.8; PROTIME 11.1 Sec (12.2-14.2); PT RATIO 0.9
[2016-06-24 07:43] LABS: BASOPHILS % 0.4 % (0.0-2.0); EOSINOPHILS % 0.2 % (0.0-7.0); HEMATOCRIT 34.4 % (37.0-47.0); HEMOGLOBIN 12.1 g/dl (12.0-16.0); LYMPHOCYTES # 2.1 10^3/ul (0.8-2.9); LYMPHOCYTES % 32.1 % (15.0-51.0); MEAN CORPUSCULAR HEMOGLOBIN 30.2 pg (29.0-33.0); MEAN CORPUSCULAR HGB CONC 35.1 g/dl (32.0-37.0); MEAN CORPUSCULAR VOLUME 85.9 fl (82.0-101.0); MEAN PLATELET VOLUME 9.9 fl (7.4-10.4); MONOCYTE # 0.4 10^3/ul (0.3-0.9); MONOCYTES % 5.9 % (0.0-11.0); NEUTROPHILS % 61.4 % (39.0-77.0); PLATELET COUNT 316 10^3/UL (140-440); RED CELL DISTRIBUTION WIDTH 13.7 % (11.5-14.5); UNCORRECTED WBC 6.6 10^3/ul (4.8-10.8); WHITE BLOOD COUNT 6.6 10^3/ul (4.8-10.8)
[2016-06-24 07:47] LABS: CONDITION 1
[2016-06-24 09:25] LABS: ALBUMIN 3.6 g/dl (3.3-4.9)
[2016-06-24 09:26] LABS: POTASSIUM 4.1 mmol/L (3.5-5.1)
[2016-06-24 09:28] LABS: ALBUMIN/GLOBULIN RATIO 0.9; BILIRUBIN,INDIRECT 0.1 mg/dl (0-1.1); BILIRUBIN,TOTAL 0.1 mg/dl (0.2-1.3); CREATININE 0.56 mg/dl (0.44-1.00); TOTAL PROTEIN 7.6 g/dl (6.1-8.1)
[2016-06-24 09:29] LABS: CALCIUM 10.7 mg/dl (8.4-10.2)
[2016-06-24] MEDS ORDERED: URSODIOL 300 MG CAP PO SCH (10:30)
[2016-06-24] MEDS ORDERED: LACTATED RINGER'S 1,000 ML IV PRN (11:00)
[2016-06-24] MEDS ORDERED: FENTAnyl 2MCG/ML-ROPIV 0.2% 100 ML ONE (11:40)
--- NOTE | 2016-06-24 17:28 | HP ---
Date/Time of Note Date/Time of Note DATE: 06/24/16 TIME: 17:27 OB - History Hx of Present Free Text/Dictation at 37 weeks with cholecystitis of preg Ultrasounds: Normal mid trimester US Obstetrical Complications: None Medical Complications: None Past Family/Social History * Past Medical, Surgical, Family and Obstetric Histories reviewed from chart. OB Admission Exam Vital Signs Vital Signs Vital Signs Date Time Temp Pulse Resp B/P Pulse Ox O2 Delivery O2 Flow Rate FiO2 06/24/16 06:49 98.1 84 18 107/67 Room Air Physical Exam HEENT: WNL Heart: Rhythm Normal Lungs: Clear, Equal Abdomen: WNL Extremities: Normal Reflexes: Normal Cervical Dilatation: 10cm Effacement: 100% Station: +3 Amniotic Fluid: Clear Heart Rate: 130's Accelerations: Accelerations Present Intensity: Moderate Last 72 hours Lab Results CBC & BMP 06/24/16 06:45 Liver Function Test 06/24/16 06:45 Alanine Aminotransferase (ALT/SGPT) 66 Albumin 3.6 Alkaline Phosphatase 271 H Aspartate Amino Transf (AST/SGOT) 50 H Direct Bilirubin 0.00 Total Protein 7.6 OB Assessment/Plan Reason for admission: induction of labor (for cholecystits of preg) Plan: Induction VINITA YANES MD Jun 24, 2016 17:28
--- NOTE | 2016-06-24 17:29 | LDN ---
Date/Time of Note Date/Time of Note DATE: 06/24/16 TIME: 17:28 Delivery Summary term preg. nsd Placenta Delivered: Spontaneously Meconium: none Perineum intact?: No Perineal laceration: 1 Anesthesia type: Epidural Estimated blood loss: 350 Sponge & Needle done & correct: Yes All needle counts correct: Yes Any foreign bodies felt in the: No Problems: VINITA YANES MD Jun 24, 2016 17:29
[2016-06-24] MEDS ORDERED: LACTATED RINGER'S 1,000 ML IV* SCH (20:21)
[2016-06-24] MEDS ORDERED: SENNA/DOCUSATE NA (8.6MG/50MG) TAB PO PRN (20:30)
[2016-06-24] MEDS ORDERED: BENZOCAINE 20% 56 ML SPRAY TOP PRN (20:30)
[2016-06-24] MEDS ORDERED: DIPHENHYDRAMINE 25 MG CAP PO PRN (20:30)
[2016-06-24] MEDS ORDERED: ACETAMINOPHEN/CODEINE #3 TAB PO PRN (20:30)
[2016-06-24] MEDS ORDERED: LANOLIN 7 GM TUBE TOP PRN (20:30)
[2016-06-24] MEDS ORDERED: MAGNESIUM HYDROXIDE 30ML CUP PO PRN (20:30)
[2016-06-24] MEDS ORDERED: ZOLPIDEM 5 MG TAB PO PRN (20:30)
[2016-06-24 20:43] VITALS: BP 138/92; PULSE 74; RESP 20
[2016-06-24] MEDS: ACETAMINOPHEN 325 MG TAB PO PRN (22:38)
[2016-06-24] MEDS: WITCH HAZEL/GLYCERIN PAD PR PRN (22:39)
[2016-06-25] MEDS: ACETAMINOPHEN 325 MG TAB PO PRN (03:31)
[2016-06-25 04:00] VITALS: BP 106/66; PULSE 76; RESP 19
[2016-06-25] MEDS: IBUPROFEN 800 MG TAB PO SCH ×4 (05:36→18:08)
[2016-06-25 08:00] VITALS: BP 109/64; PULSE 82; RESP 18
[2016-06-25 08:04] LABS: BASOPHILS % 0.3 % (0.0-2.0); EOSINOPHILS % 0.4 % (0.0-7.0); HEMOGLOBIN 11.5 g/dl (12.0-16.0); LYMPHOCYTES # 2.2 10^3/ul (0.8-2.9); LYMPHOCYTES % 25.7 % (15.0-51.0); MEAN CORPUSCULAR HEMOGLOBIN 30.6 pg (29.0-33.0); MEAN CORPUSCULAR VOLUME 87.5 fl (82.0-101.0); MONOCYTE # 0.5 10^3/ul (0.3-0.9); MONOCYTES % 5.6 % (0.0-11.0); NEUTROPHIL # 5.8 10^3/ul (1.6-7.5); PLATELET COUNT 251 10^3/UL (140-440); RED BLOOD COUNT 3.77 10^6/ul (4.20-5.40); RED CELL DISTRIBUTION WIDTH 13.7 % (11.5-14.5); UNCORRECTED WBC 8.5 10^3/ul (4.8-10.8); WHITE BLOOD COUNT 8.5 10^3/ul (4.8-10.8)
[2016-06-25 08:08] LABS: CONDITION 1
--- NOTE | 2016-06-25 10:51 | DS ---
Date/Time of Note Date/Time of Note DATE: 06/25/16 TIME: 10:50 Discharge Summary Admission/Discharge Info Admit Date/Time Jun 24, 2016 at 06:10 Discharge Date/Time Final Diagnosis term , cholecystitis of . NSD Hospital Course UNREMARKABLE Home Meds Reported Medications Ursodiol* (Actigall*) 300 Mg Cap, 300 MG .ROUTE, CAP 12/27/14 Vits W-Ca,Fe,Fa(<1MG) ( Vitamins) 1 Tab Tablet, 1 TAB PO DAILY for 7 Days 11/29/14 Pending Labs Laboratory Tests Test 06/25/16 06:40 Basophils # 0.010^3/ul (0.0-0.1) Basophils % 0.3% (0.0-2.0) Eosinophils # 0.010^3/ul (0.0-0.5) Eosinophils % 0.4% (0.0-7.0) Hematocrit 33.0% (37.0-47.0) Hemoglobin 11.5g/dl (12.0-16.0) Lymphocytes # 2.210^3/ul (0.8-2.9) Lymphocytes % 25.7% (15.0-51.0) Mean Corpuscular Hemoglobin 30.6pg (29.0-33.0) Mean Corpuscular Hemoglobin Concent 35.0g/dl (32.0-37.0) Mean Corpuscular Volume 87.5fl (82.0-101.0) Mean Platelet Volume 10.0fl (7.4-10.4) Monocytes # 0.510^3/ul (0.3-0.9) Monocytes % 5.6% (0.0-11.0) Neutrophils # 5.810^3/ul (1.6-7.5) Neutrophils % 68.0% (39.0-77.0) Nucleated Red Blood Cells # 0.010^3/ul (0.0-0.0) Nucleated Red Blood Cells % 0.0/100WBC (0.0-0.0) Platelet Count 84564^3/UL (140-440) Red Blood Count 3.7710^6/ul (4.20-5.40) Red Cell Distribution Width 13.7% (11.5-14.5) White Blood Count 8.510^3/ul (4.8-10.8) VINITA YANES MD Jun 25, 2016 10:51
[2016-06-25] MEDS: WITCH HAZEL/GLYCERIN PAD PR PRN (11:26)
[2016-06-25 16:00] VITALS: BP 115/60; RESP 17
[2016-06-25 20:50] VITALS: BP 114/68; PULSE 73; RESP 18
[2016-06-26] MEDS: IBUPROFEN 800 MG TAB PO SCH ×3 (00:01→12:26)
[2016-06-26] MEDS ORDERED: INFLUENZA VIRUS VACCINE 0.5 ML (DISPENSING) IM* ONE (03:00)
[2016-06-26 04:00] VITALS: BP 103/67; PULSE 74; RESP 18
[2016-06-26 08:10] VITALS: BP 97/59; PULSE 71; RESP 17
[2016-06-26] MEDS ORDERED: MEASLES,MUMPS,RUBELLA VACCINE INJ SC* ONE (09:00)
[2016-06-26] MEDS ORDERED: DIPHTH/TET/ACEL PERTUSS (ADULT) 0.5 ML VIAL IM* ONE (09:00)
[2016-06-26] MEDS ORDERED: VARICELLA VACCINE LIVE/PF 1,350 UNIT/0.5 ML ML SC* ONE (09:00)
[2016-06-28] MEDS ORDERED: INFLUENZA VIRUS VACCINE 0.5 ML (DISPENSING) IM* ONE (09:00)
== END 2016-06-26 13:45 | disposition home or self-care (01) | DRG 775 ==
LOC: L-D 06:10 → PP1 20:16
PROVIDERS: ADMIT Obstetrics & Gynecology; ATTEND Obstetrics & Gynecology
PROC: 0HQ9XZZ Repair Perineum Skin, External Approach (ICD-10-PCS; 2016-06-24)
PROC: 3E0P7GC Introduction of Other Therapeutic Substance into Female Reproductive, Via Natural or Artificial Opening (ICD-10-PCS; 2016-06-24)
PROC: 10E0XZZ Delivery of Products of Conception, External Approach (ICD-10-PCS; principal; 2016-06-24 06:00)
DX: O99.62 Diseases of the digestive system complicating childbirth (principal); K81.9 Cholecystitis, unspecified; Z3A.37 37 weeks gestation of pregnancy; Z37.0 Single live birth; O70.0 First degree perineal laceration during delivery
CPT/HCPCS: 62319; 80053; 85025; 85610; 85730; 86592; 86900; 86901; 90686; 90715; 90716; J3010; J7120

== ENCOUNTER 2018-11-20 21:41 | Outpatient (CLI) | payer OTHER ==
[~2018-11-20] VITALS: Ht 157.5 cm; Wt 67.2 kg
[2018-11-20 23:31] VITALS: BP 111/74; PULSE 93; RESP 16
--- NOTE | 2018-11-20 23:54 | PN ---
Triage Information Date/Time November 20, 2018 Reason for visit: Abd/pelvic pain Weeks of Gestation 34w 2d /Para 4/3 Diabetes: none Hypertention: none Additional information Pt reports the silvia only when she moves and especially when she 1st starts up moving. It does not come and go and she denies feeling any pelvic pressure. No bleeding or leaking. PMHx: none. PSHx: none. POBHx: x 3; 1st she delivered at 36 weeks and the other 2 she was induced at 37 weeks for cholestasis. All: PCN. Objective Vital Signs Date Temp Pulse Resp B/P (MAP) Pulse Ox O2 O2 Flow FiO2 Time Delivery Rate 11/20/18 97.9 93 16 111/74 Room Air 23:31 (86) Heart Rate: 140's Heart Rate Comments Accels to 170 BPM. No decels. Contractions: None Results/Medications Results 24 hrs Laboratory Tests Test 11/20/18 21:40 Urine Color YELLOW Urine Clarity SLIGHTLY CLOUDY A Urine pH 6.0 Urine Specific [place] 1.020 Urine Ketones NEGATIVE Urine Nitrite NEGATIVE Urine Bilirubin NEGATIVE Urine Urobilinogen 2+ H Urine Leukocyte Esterase NEGATIVE Urine Microscopic RBC 0 Urine Microscopic WBC 3 Urine Squamous Epithelial Cells FEW Urine Hemoglobin NEGATIVE Urine Glucose NEGATIVE Urine Total Protein NEGATIVE Disposition: Discharge Assessment/Plan A: IUP at 34w 2d. Pelvic ligament pain. False labor. P: D/C home. Discussed how to minimize the discomfort of ligament pain. To regularly scheduled clinic appt on 11/23. PAZ SERRA MD Nov 20, 2018 23:54
--- NOTE | 2018-11-21 02:44 | TRIAGE ---
OB Triage Datetime Report Generated by CPN: 11/21/2018 02:44 Datetime: 11/20/2018 23:46 Stage of : OB Triage Labor Evaluation Monitor Mode: External Quality: Mild Resting Tone [place]: Relaxed Heart Rate FHR Baseline Rate: 145 Monitor Mode: External US FHR Baseline Changes: No Baseline Change Variability: Moderate 6-25 bpm Accelerations: 15X15 Decelerations: None Category: Category I Datetime: 11/20/2018 23:24 Stage of : OB Triage Labor Evaluation Monitor Mode: External Resting Tone [place]: Relaxed Heart Rate FHR Baseline Rate: 140 Monitor Mode: External US FHR Baseline Changes: No Baseline Change Variability: Moderate 6-25 bpm Accelerations: 15X15 Decelerations: None Category: Category I Datetime: 11/20/2018 22:49 Stage of : OB Triage Labor Evaluation Monitor Mode: External Quality: Mild Pattern: Normal: <= 5 Contractions in 10 Minutes Resting Tone [place]: Relaxed Heart Rate FHR Baseline Rate: 145 Monitor Mode: External US FHR Baseline Changes: No Baseline Change Variability: Moderate 6-25 bpm Accelerations: 15X15 Decelerations: None Category: Category I Datetime: 11/20/2018 22:20 Stage of : OB Triage Datetime: 11/20/2018 22:07 Vaginal Exam Membrane Status: Intact Datetime: 11/20/2018 22:04 Stage of : OB Triage Maternal Assessment Level of Consciousness: Keenly Alert, Responsive Headache: Denies Blurred Vision: No Respiratory Effort: Unlabored Nausea/Vomiting: Denies RUQ Epigastric Pain: Denies Facial Edema: None Labor Evaluation Monitor Mode: External Resting Tone [place]: Relaxed Heart Rate FHR Baseline Rate: 150 Monitor Mode: External US Pain Assessment Pain Scale: 8 Pain Presence: Intermittent Pain Type: Sharp; Stabbing Pain Location: Perineum Datetime: 11/20/2018 21:58 EGA: 31.3 Datetime: 11/20/2018 10:00 Time of Arrival: 11/20/2018 21:20 EGA: 31.3 Arrived By: Wheelchair Arrived From: Home Chief Complaint: c/o "sticking derrick vaginal pain" since am and states difficult to walk Movement: Present Contractions: Denies/Absent Rupture of Membranes: Denies Vaginal Bleeding: None Vaginal Discharge: Denies Recent Sexual Intercouse: Denies Abdominal Trauma: Not Applicable Time Provider Notified: 11/20/2018 22:20 Provider Notified: Dr Crockett Initial Plan: GERI,CHEIKH
== END 2018-11-20 23:55 | disposition home or self-care (01) ==
LOC: OBT 21:41 → L-D 21:43 → OBT 23:55
PROVIDERS: ATTEND Obstetrics & Gynecology
DX: O47.03 False labor before 37 completed weeks of gestation, third trimester (principal); O26.893 Other specified pregnancy related conditions, third trimester; Z3A.34 34 weeks gestation of pregnancy
CPT/HCPCS: 81001; Z7500; 81003; G0463

== ENCOUNTER 2018-12-07 10:06 | Inpatient (IN) | payer OTHER ==
[~2018-12-07] VITALS: Ht 157.5 cm; Wt 108.4 kg
[~2018-12-07 10:06] MED LIST changes: -URSO300C21
[2018-12-07 10:27] VITALS: Ht 157.5 cm; Wt 108.4 kg
[2018-12-07 10:28] VITALS: BP 122/72; PULSE 92; RESP 19
[2018-12-07] MEDS ORDERED: LACTATED RINGER'S 1,000 ML IV ONE (11:00)
[2018-12-07] MEDS ORDERED: LACTATED RINGER'S 1,000 ML IV SCH (11:00)
[2018-12-07] MEDS ORDERED: MAGNESIUM SULFATE 20 GM/500 ML 500 ML IV SCH (11:44)
[2018-12-07] MEDS ORDERED: MAGNESIUM SULFATE 4 GM/100 ML 100 ML IV ONE (12:00)
[2018-12-07] MEDS ORDERED: METHYLERGONOVINE 0.2 MG INJ IM PRN ×2 (12:00→16:00)
[2018-12-07] MEDS ORDERED: CARBOPROST 250 MCG INJ IM PRN ×2 (12:00→16:00)
[2018-12-07] MEDS ORDERED: LIDOCAINE 1% (MPF) 30 ML INJ INJ PRN (12:00)
[2018-12-07] MEDS ORDERED: OXYTOCIN 30 UNITS/LR 500 ML IV PRN ×2 (12:00→16:00)
[2018-12-07] MEDS ORDERED: MISOPROSTOL 200 MCG TAB PR PRN ×2 (12:00→16:00)
[2018-12-07] MEDS ORDERED: OXYTOCIN 30 UNITS/LR 500 ML IV SCH ×3 (12:00→15:37)
[2018-12-07] MEDS ORDERED: CLINDAMYCIN 900 MG/D5W (PMX) 50 ML IVPB ONE (12:11)
[2018-12-07] MEDS ORDERED: BETAMET NA PHOS/AC(6 MG/ML) 2 ML INJ SYG IM SCH (12:30)
--- NOTE | 2018-12-07 13:19 | HP ---
Date/Time of Note Date/Time of Note DATE: 12/07/18 TIME: 13:17 OB - History Hx of Present Free Text/Dictation at 33w6d with SROM AND CTXS : 4 Para: 3 Care: Good Care Ultrasounds: Normal mid trimester US Obstetrical Complications: None Medical Complications: None Past Family/Social History * Past Medical, Surgical, Family and Obstetric Histories reviewed from chart. OB Admission Exam Vital Signs Vital Signs Vital Signs Date Temp Pulse Resp B/P (MAP) Pulse Ox O2 O2 Flow FiO2 Time Delivery Rate 12/07/18 98.7 92 19 122/72 Room Air 10:28 (89) Physical Exam HEENT: WNL Heart: Rhythm Normal Lungs: Clear, Equal Abdomen: WNL Extremities: Normal Reflexes: Normal Cervical Dilatation: 8cm Effacement: 100% Station: 0 Membranes: Ruptured Amniotic Fluid: Thick Meconium Heart Rate: 130's Accelerations: Accelerations Present Decelerations: No Decelerations Varibility: Moderate Contractions on Admission: 6-10 Minutes Apart Intensity: Moderate Last 72 hours Lab Results CBC & BMP 12/07/18 11:59 OB Assessment/Plan Reason for admission: active labor, rupture of membranes Plan: Expectant Management (MAGNESIUM, CLINDAMYCIN, BETA METHASONE) VINITA YANES MD Dec 07, 2018 13:18
[2018-12-07] MEDS ORDERED: CLINDAMYCIN 900 MG/D5W (PMX) 50 ML IVPB SCH (14:00)
--- NOTE | 2018-12-07 15:05 | LDN ---
Date/Time of Note Date/Time of Note DATE: 12/07/18 TIME: 15:05 Delivery Summary Placenta Delivered: Spontaneously Meconium: none Episiotomy: No Perineal laceration: 1 Anesthesia type: Local Estimated blood loss: 300 Sponge & Needle done & correct: Yes All needle counts correct: Yes Any foreign bodies felt in the: No VINITA YANES MD Dec 07, 2018 15:05
--- NOTE | 2018-12-07 15:06 | DS ---
Date/Time of Note Date/Time of Note DATE: 12/07/18 TIME: 15:05 Discharge Summary Admission/Discharge Info Admit Date/Time Dec 07, 2018 at 12:16 Discharge Date/Time Discharge Diagnosis TERM PREG Patient Condition: Stable Hospital Course UNREMARKABLE Home Meds Reported Medications Vits W-Ca,Fe,Fa(<1MG) ( Vitamins) 1 Tab Tablet, 1 TAB PO DAILY for 7 Days 11/29/14 Primary Care Provider Not On Staff Doctor Pending Labs Laboratory Tests Test 12/07/18 10:55 12/07/18 11:59 Membranes Rupture POSITIVE (NEGATIVE) Fibronectin POSITIVE (NEGATIVE) White Blood Count 9.3 10^3/ul (4.8-10.8) Red Blood Count 4.10 10^6/ul (4.20-5.40) Hemoglobin 11.6 g/dl (12.0-16.0) Hematocrit 34.8 % (37.0-47.0) Mean Corpuscular Volume 84.9 fl (82.0-101.0) Mean Corpuscular Hemoglobin 28.3 pg (29.0-33.0) Mean Corpuscular 33.3 g/dl (32.0-37.0) Hemoglobin Concent Red Cell Distribution Width 13.2 % (11.5-14.5) Platelet Count 289 10^3/UL (140-415) Mean Platelet Volume 11.0 fl (7.4-10.4) Immature Granulocytes % 0.300 % (0.001-0.429) Neutrophils % 80.6 % (39.0-77.0) Lymphocytes % 12.3 % (15.0-51.0) Monocytes % 6.4 % (0.0-11.0) Eosinophils % 0.2 % (0.0-7.0) Basophils % 0.2 % (0.0-2.0) Nucleated Red Blood Cells % 0.0 /100WBC (0.0-0.0) Immature Granulocytes # 0.030 10^3/ul (0.0-0.031) Neutrophils # 7.5 10^3/ul (1.6-7.5) Lymphocytes # 1.1 10^3/ul (0.8-2.9) Monocytes # 0.6 10^3/ul (0.3-0.9) Eosinophils # 0.0 10^3/ul (0.0-0.5) Basophils # 0.0 10^3/ul (0.0-0.1) Nucleated Red Blood Cells # 0.0 10^3/ul (0.0-0.0) Prothrombin Time 11.7 Sec (11.9-14.9) Prothrombin Time Ratio 0.9 INR International 0.85 Normalized Ratio Activated Partial Thromboplast 29.0 Sec (23.0-35.0) Time VINITA YANES MD Dec 07, 2018 15:06
[2018-12-07] MEDS: LACTATED RINGER'S 1,000 ML IV* SCH ×2 (15:37→23:37)
[2018-12-07 16:00] VITALS: BP 114/59; PULSE 92; RESP 19
[2018-12-07] MEDS ORDERED: LANOLIN HPA 1 PKT TOP PRN (16:00)
[2018-12-07] MEDS ORDERED: WITCH HAZEL/GLYCERIN PAD PR PRN (16:00)
[2018-12-07] MEDS ORDERED: BENZOCAINE 20% 56 ML SPRAY TOP PRN (16:00)
[2018-12-07] MEDS ORDERED: DIPHENHYDRAMINE 25 MG CAP PO PRN (16:00)
[2018-12-07] MEDS ORDERED: ZOLPIDEM 5 MG TAB PO PRN (16:00)
[2018-12-07] MEDS ORDERED: SENNA/DOCUSATE NA (8.6MG/50MG) TAB PO PRN (16:00)
[2018-12-07] MEDS ORDERED: HYDROCODONE/APAP (5/325) TAB PO PRN (16:00)
[2018-12-07] MEDS ORDERED: MAGNESIUM HYDROXIDE 30ML CUP PO PRN (16:00)
[2018-12-07] MEDS ORDERED: ACETAMINOPHEN 325 MG TAB PO PRN (16:00)
[2018-12-07] MEDS: IBUPROFEN 800 MG TAB PO SCH (17:16)
[2018-12-07 19:40] VITALS: BP 117/69; PULSE 87; RESP 18
[2018-12-08] MEDS: IBUPROFEN 800 MG TAB PO SCH ×4 (00:24→18:32)
[2018-12-08 03:00] VITALS: BP 111/64; PULSE 73; RESP 18
[2018-12-08 07:30] VITALS: BP 110/66; PULSE 63
[2018-12-08 16:00] VITALS: BP 111/61; PULSE 71; RESP 18
[2018-12-08] MEDS: LACTATED RINGER'S 1,000 ML IV* SCH (19:00)
[2018-12-08 20:00] VITALS: BP 121/75; PULSE 73; RESP 18
[2018-12-09] MEDS: IBUPROFEN 800 MG TAB PO SCH ×3 (00:21→11:28)
[2018-12-09 03:57] VITALS: BP 100/52; PULSE 56; RESP 18
[2018-12-09 08:00] VITALS: BP 111/54; PULSE 66; RESP 17
--- NOTE | 2018-12-09 08:12 | QN ---
Documentation Comment doing well vss d/c home today VINITA YANES MD Dec 09, 2018 08:12
[2018-12-09] MEDS ORDERED: MEASLES,MUMPS,RUBELLA VACCINE INJ SC* ONE (09:00)
[2018-12-09] MEDS ORDERED: DIPHTH/TET/ACEL PERTUSS (ADULT) 0.5 ML VIAL IM* ONE (09:00)
[2018-12-09] MEDS ORDERED: VARICELLA VACCINE LIVE/PF 1,350 UNIT/0.5 ML ML SC* ONE (09:00)
[2018-12-09] MEDS: LACTATED RINGER'S 1,000 ML IV* SCH (11:00)
--- NOTE | 2018-12-10 14:30 | DELSUM ---
Delivery Summary A-C Datetime Report Generated by CPN: 12/10/2018 14:29 DELIVERY PERSONNEL Chief Compressor Station Engineer: Katty Houston MATERNAL INFORMATION Delivery Anesthesia: Local Medications in Delivery: MAGNESIUM SULFATE Placenta Cultured: Yes Maternal Complications: PROM Other Maternal Complications: HX OF CHOLESTASIS WITH OTHER PREGNANCIES, LABS DRAWN 2 DAYS AGO-NO RES ULTS RN Comments: THICK MECONIUM LABOR SUMMARY EDC: 01/19/2019 00:00 No. Babies in Womb: 1 Attempted: No Labor Anesthesia: None LABOR INFORMATION Reason for Induction: Not Applicable Onset of Labor: 12/07/2018 06:00 Complete Dilatation: 12/07/2018 14:01 Group B Beta Strep: Not Done Antibiotics # of Doses: 1 Antibiotics Time of Last Dose: 12/07/2018 12:18 Steroids Given: Partial Course; <24Hrs before Delivery Reason Steroids Not Administered: Not Applicable MEMBRANES Membranes Rupture Method: Spontaneous Rupture of Membranes: 12/07/2018 06:00 Length of Rupture (hr): 8.08 Amniotic Fluid Color: Heavy Meconium Amniotic Fluid Amount: Small Amniotic Fluid Odor: None STAGES OF LABOR Stage 1 hr: 8 Stage 1 min: 1 Stage 2 hr: 0 Stage 2 min: 4 Stage 3 hr: 0 Stage 3 min: 2 Total Time in Labor hr: 8 Total Time in Labor min: 7 VAGINAL DELIVERY Episiotomy: None Laceration Extension: First Degree Laceration Type: Perineal Laceration Repair: Yes Initial Vag Sponge Count: 10 Final Vag Sponge Count: 10 Initial Vag Sharps Count: 1 Final Vag Sharps Count: 2 Sponge Count Correct: Yes Sharps Count Correct: Yes BABY A INFORMATION Delivery Date/Time: 12/07/2018 14:05 Method of Delivery: Vaginal Born in Route : No : N/A Forceps: N/A Vacuum Extraction: N/A Shoulder Dystocia : No SHOULDER DYSTOCIA BABY A Infant Delivery Date/Time: 12/07/2018 14:05 PRESENTATION/POSITION BABY A Presentation: Cephalic Cephalic Presentation: Vertex Vertex Position: Left Occipital Anterior Breech Presentation: N/A PLACENTA INFORMATION BABY A Placenta Delivery Time : 12/07/2018 14:07 Placenta Method of Delivery: Spontaneous Placenta Status: Delivered SCORES BABY A Heart Rate 1 min: >100 bpm Resp Effort 1 min: Good Cry Reflex Irritability 1 min: Cough/Sneeze/Pulls Away Muscle Tone 1 min: Active Motion Color 1 min: Body Ponder, Extremit Blue Resuscitation Effort 1 min: Tactile Stimulation SCORE 1 MIN: 9 Heart Rate 5 min: >100 bpm Resp Effort 5 min: Good Cry Reflex Irritability 5 min: Cough/Sneeze/Pulls Away Muscle Tone 5 min: Active Motion Color 5 min: Body Ponder, Extremit Blue Resuscitation Effort 5 min: Tactile Stimulation SCORE 5 MIN: 9 INFORMATION BABY A Gestational Age at Delivery: 33.6 Gestational Status: - <34 Weeks Infant Outcome : Liveborn, with signs of life Infant Condition : Stable Infant Sex: Female IDENTIFICATION/MEDS BABY A ID Band Number: [id number] ID Band Location: Right Leg; Left Arm Sensor Applied: No Vitamin K Given : Not Given Erythromycin Given: Not Given WEIGHT/LENGTH BABY A Infant Birthweight (gm): 2290 Weight (lb): 5 Infant Weight (oz): 1 Length (in): 17.00 Infant Length (cm): 43.18 CORD INFORMATION BABY A No. Cord Vessels: 3 Nuchal Cord : N/A Cord Blood Taken: Yes Suction: Mouth; Nose ASSESSMENT BABY A Complications: None Physical Findings at Delivery: Within Normal Limits Respirations: Appears Normal Assembly Machine Tool Setter/ALS Called : Yes Care By: HEAVY FORGER/RT, AND MIGEL Transferred To: NICU
== END 2018-12-09 12:20 | disposition home or self-care (01) | DRG 807 ==
LOC: OBT 10:06 → L-D 10:07 → OBT 11:50 → L-D 11:54 → PP1 15:50
PROVIDERS: ADMIT Obstetrics & Gynecology; ATTEND Obstetrics & Gynecology
PROC: 10E0XZZ Delivery of Products of Conception, External Approach (ICD-10-PCS; principal; 2018-12-07)
PROC: 0HQ9XZZ Repair Perineum Skin, External Approach (ICD-10-PCS; 2018-12-07)
PROC: 4A1HXCZ Monitoring of Products of Conception, Cardiac Rate, External Approach (ICD-10-PCS; 2018-12-07)
PROC: 3E0234Z Introduction of Serum, Toxoid and Vaccine into Muscle, Percutaneous Approach (ICD-10-PCS; 2018-12-09)
DX: O60.14X0 Preterm labor third trimester with preterm delivery third trimester, not applicable or unspecified (principal); Z37.0 Single live birth; O70.0 First degree perineal laceration during delivery; Z3A.33 33 weeks gestation of pregnancy; Z23 Encounter for immunization
CPT/HCPCS: 76815; 76817; 76818; 82731; 84112; 85025; 85610; 85730; 86592; 86850; 86900; 86901; 87340; 88307; 90715; 90716; 96360; 99464; G0463; J0702; J2590; J3475; J7120